=== PATIENT | female | born 1965 | race Caucasian/White ===

== ENCOUNTER 2016-06-29 16:21 | Emergency (ER) | payer OTHER ==
[2016-06-29 19:55] LABS: RED BLOOD COUNT 4.47 M/UL (4.00-5.10); WHITE BLOOD COUNT 9.3 K/UL (4.5-11.0)
[2016-06-29 20:12] LABS: BUN/CREATININE RATIO 14 (0-10)
[2016-11-14] MEDS ORDERED: ELIQUIS5 MG PO (04:15)
[2016-11-14] MEDS ORDERED: TOPROL XL50 MG PO (04:15)
[2016-11-14] MEDS ORDERED: KLONOPIN TAB 00.5 MG PO ×2 (04:16→04:17)
[2016-11-14] MEDS ORDERED: ZANTAC150 MG PO (04:16)
== END 2016-06-29 23:10 | disposition home or self-care (01) ==
LOC: ER1 16:21
PROVIDERS: Physician Assistant
DX: K21.9 Gastro-esophageal reflux disease without esophagitis (principal); I12.9 Hypertensive chronic kidney disease with stage 1 through stage 4 chronic kidney disease, or unspecified chronic kidney disease; N18.9 Chronic kidney disease, unspecified; I48.91 Unspecified atrial fibrillation; E03.9 Hypothyroidism, unspecified; F17.210 Nicotine dependence, cigarettes, uncomplicated
CPT/HCPCS: 36415; 71010; 80053; 81001; 82550; 82553; 83690; 83874; 84443; 84484; 85025; 87081; 87086; 87880; 93005; 96361; 96374; 99284; C9113

== ENCOUNTER → 2016-06-30 | Outpatient (CLI) | payer OTHER ==
[~2016-06-30] MED LIST: ELIQUIS5 MG PO; KLONOPIN TAB 00.5 MG PO; SOTALOL80 MG PO; TOPROL XL50 MG PO; ZANTAC150 MG PO
== END ==
LOC: RAD 15:55
DX: M25.531 Pain in right wrist (principal); M79.89 Other specified soft tissue disorders
CPT/HCPCS: 73110

== ENCOUNTER → 2016-08-11 | Outpatient (CLI) | payer OTHER ==
[2016-08-11 10:10] LABS: BUN/CREATININE RATIO 11 (0-10)
== END ==
LOC: LAB 08:59
PROVIDERS: Internal Medicine
DX: E78.5 Hyperlipidemia, unspecified (principal); I10 Essential (primary) hypertension; R73.01 Impaired fasting glucose; Z79.899 Other long term (current) drug therapy
CPT/HCPCS: 36415; 80053; 80061; 83036

== ENCOUNTER 2016-09-05 17:21 | Emergency (ER) | payer OTHER ==
[2016-09-05 17:55] LABS: HEMOGLOBIN 14.9 gm/dl (12.3-15.3); RED BLOOD COUNT 4.75 M/UL (4.00-5.10); WHITE BLOOD COUNT 9.6 K/UL (4.5-11.0)
[2016-09-05 18:26] LABS: BUN/CREATININE RATIO 12 (0-10)
[2016-11-14] MEDS ORDERED: ELIQUIS5 MG PO (04:15)
[2016-11-14] MEDS ORDERED: TOPROL XL50 MG PO (04:15)
[2016-11-14] MEDS ORDERED: ZANTAC150 MG PO (04:16)
[2016-11-14] MEDS ORDERED: KLONOPIN TAB 00.5 MG PO ×2 (04:16→04:17)
== END 2016-09-05 21:13 | disposition home or self-care (01) ==
LOC: ER1 17:21
PROVIDERS: Emergency Medicine
DX: K21.9 Gastro-esophageal reflux disease without esophagitis (principal); I10 Essential (primary) hypertension; I48.0 Paroxysmal atrial fibrillation; F17.200 Nicotine dependence, unspecified, uncomplicated; Z88.6 Allergy status to analgesic agent; Z91.041 Radiographic dye allergy status; Z79.899 Other long term (current) drug therapy
CPT/HCPCS: 36415; 71010; 80053; 82550; 82553; 83874; 84484; 85025; 93005; 99284; C9113

== ENCOUNTER 2016-12-07 19:44 | Inpatient (IN) | payer OTHER ==
[~2016-12-07] VITALS: Ht 172.7 cm; Wt 95.3 kg
[~2016-12-07 19:44] MED LIST changes: -SOTALOL80 MG PO
[2016-12-07 20:14] LABS: HEMOGLOBIN 14.8 gm/dl (12.3-15.3); RED BLOOD COUNT 4.67 M/UL (4.00-5.10); WHITE BLOOD COUNT 10.6 K/UL (4.5-11.0)
[2016-12-07 20:34] LABS: BUN/CREATININE RATIO 16 (0-10)
[2016-12-08 04:43] LABS: HEMOGLOBIN 13.4 gm/dl (12.3-15.3); RED BLOOD COUNT 4.26 M/UL (4.00-5.10); WHITE BLOOD COUNT 8.3 K/UL (4.5-11.0)
[2016-12-08 05:03] LABS: BUN/CREATININE RATIO 16 (0-10)
[2016-12-09] MEDS ORDERED: SOTALOL80 MG PO (10:45)
== END 2016-12-09 09:30 | disposition home or self-care (01) | DRG 310 ==
LOC: ER1 19:44 → ZEROF 12-08 00:12 → CCU 12-08 00:12
PROVIDERS: Family Medicine; ADMIT Internal Medicine
DX: I48.0 Paroxysmal atrial fibrillation (principal); I10 Essential (primary) hypertension; F17.210 Nicotine dependence, cigarettes, uncomplicated; E05.90 Thyrotoxicosis, unspecified without thyrotoxic crisis or storm; Z91.041 Radiographic dye allergy status; Z88.8 Allergy status to other drugs, medicaments and biological substances; Z88.6 Allergy status to analgesic agent; Z79.899 Other long term (current) drug therapy; Z79.02 Long term (current) use of antithrombotics/antiplatelets; Z90.5 Acquired absence of kidney
CPT/HCPCS: 71010; 80053; 82550; 82553; 83735; 83874; 83880; 84100; 84439; 84443; 84484; 85025; 93005; J7030

== ENCOUNTER → 2020-05-25 | Outpatient (CLI) | payer OTHER ==
[~2020-05-25] MED LIST changes: +CETIRIZINE HCL10 MG PO; +HYDROCODON-ACE1 EAC6 PO; +OMEPRAZOLE20 M1 PO; +SOTALOL80 MG PO; +VENTOLIN HFA 66.7 GM INH; +VITAMIN B12 PO; +VITAMIN C500 M4 PO; +VITAMIN D PO; +ZINC50 M3 PO
[2020-05-25 09:25] LABS: HEMOGLOBIN 14.7 gm/dl (12.3-15.3); RED BLOOD COUNT 4.58 M/UL (4.00-5.10); WHITE BLOOD COUNT 7.5 K/UL (4.5-11.0)
[2020-05-25 09:57] LABS: BUN/CREATININE RATIO 15 (0-10)
== END ==
LOC: OPSV2 05-23 08:00
PROVIDERS: Anesthesiology; Obstetrics & Gynecology
DX: Z01.818 Encounter for other preprocedural examination (principal); A63.0 Anogenital (venereal) warts; R94.31 Abnormal electrocardiogram [ECG] [EKG]
CPT/HCPCS: 36415; 80048; 81001; 85025; 93005

== ENCOUNTER → 2020-05-31 | Day surgery (SDC) | payer OTHER | END | disposition home or self-care (01) | LOC: OR 07:29 | PROVIDERS: Obstetrics & Gynecology | PROC: 0UPDXHZ Removal of Contraceptive Device from Uterus and Cervix, External Approach (ICD-10-PCS; 2020-05-31) | PROC: 0U5MXZZ Destruction of Vulva, External Approach (ICD-10-PCS; principal; 2020-05-31 08:30) | DX: A63.0 Anogenital (venereal) warts (principal); N95.9 Unspecified menopausal and perimenopausal disorder; I25.10 Atherosclerotic heart disease of native coronary artery without angina pectoris; I10 Essential (primary) hypertension; F41.0 Panic disorder [episodic paroxysmal anxiety]; E78.2 Mixed hyperlipidemia; G47.00 Insomnia, unspecified; K21.9 Gastro-esophageal reflux disease without esophagitis; I48.91 Unspecified atrial fibrillation; E04.2 Nontoxic multinodular goiter; F41.9 Anxiety disorder, unspecified; E11.9 Type 2 diabetes mellitus without complications; M19.90 Unspecified osteoarthritis, unspecified site; K44.9 Diaphragmatic hernia without obstruction or gangrene; F17.210 Nicotine dependence, cigarettes, uncomplicated; F17.290 Nicotine dependence, other tobacco product, uncomplicated; Z79.84 Long term (current) use of oral hypoglycemic drugs; Z79.01 Long term (current) use of anticoagulants; Z20.822 Contact with and (suspected) exposure to COVID-19; Z97.5 Presence of (intrauterine) contraceptive device; Z88.8 Allergy status to other drugs, medicaments and biological substances; Z90.5 Acquired absence of kidney | CPT/HCPCS: J2001; J2250; J2405; J2704; J3010; J7120 ==

== ENCOUNTER 2020-07-25 08:23 | Emergency (ER) | payer OTHER ==
[2020-07-25 09:41] LABS: HEMOGLOBIN 15.4 gm/dl (12.3-15.3); RED BLOOD COUNT 4.73 M/UL (4.00-5.10); WHITE BLOOD COUNT 7.9 K/UL (4.5-11.0)
[2020-07-25 10:00] LABS: BUN/CREATININE RATIO 11 (0-10)
== END 2020-07-25 11:10 | disposition home or self-care (01) ==
LOC: ER1 08:23
PROVIDERS: Emergency Medicine
DX: R10.12 Left upper quadrant pain (principal); R00.2 Palpitations; I48.91 Unspecified atrial fibrillation; Z79.01 Long term (current) use of anticoagulants; Z79.899 Other long term (current) drug therapy
CPT/HCPCS: 71045; 80053; 82550; 82553; 83690; 83874; 84484; 85025; 93005; 99285

== ENCOUNTER 2020-12-22 19:41 | Emergency (ER) | payer OTHER ==
[2020-12-22] MEDS ORDERED: PERCOCET 5/325 T1 EA PO (23:15)
== END 2020-12-22 23:40 | disposition home or self-care (01) ==
LOC: ER1 19:41
DX: S93.402A Sprain of unspecified ligament of left ankle, initial encounter (principal); S93.401A Sprain of unspecified ligament of right ankle, initial encounter; I48.91 Unspecified atrial fibrillation; Z79.01 Long term (current) use of anticoagulants; F17.200 Nicotine dependence, unspecified, uncomplicated; W19.XXXA Unspecified fall, initial encounter
CPT/HCPCS: 73590; 73610; 99283

== ENCOUNTER → 2020-12-31 | Outpatient (CLI) | payer OTHER ==
[~2020-12-31] MED LIST changes: +PERCOCET 5/325 T1 EA PO
== END ==
LOC: KOH-I 14:41
DX: S93.402A Sprain of unspecified ligament of left ankle, initial encounter (principal); M79.672 Pain in left foot
CPT/HCPCS: 73610; 73630

== ENCOUNTER → 2021-01-31 | Outpatient (CLI) | payer OTHER | LOC: KOH-I 09:58 | DX: M25.572 Pain in left ankle and joints of left foot (principal); M19.072 Primary osteoarthritis, left ankle and foot | CPT/HCPCS: 73610 ==

== ENCOUNTER → 2021-02-04 | Outpatient (CLI) | payer OTHER | LOC: EXRD 07:40 | DX: S89.92XA Unspecified injury of left lower leg, initial encounter (principal); I82.462 Acute embolism and thrombosis of left calf muscular vein | CPT/HCPCS: 93971 ==

== ENCOUNTER → 2021-02-12 | Outpatient (CLI) | payer OTHER | LOC: KOH-I 08:00 | DX: S82.832D Other fracture of upper and lower end of left fibula, subsequent encounter for closed fracture with routine healing (principal) | CPT/HCPCS: 73721 ==

== ENCOUNTER → 2021-03-06 | Outpatient (CLI) | payer OTHER | LOC: EXRD 08:40 | DX: R10.9 Unspecified abdominal pain (principal); K76.0 Fatty (change of) liver, not elsewhere classified | CPT/HCPCS: 76700 ==

== ENCOUNTER → 2021-04-04 | Outpatient (CLI) | payer OTHER | LOC: KOH-I 08:46 | DX: S82.892A Other fracture of left lower leg, initial encounter for closed fracture (principal) | CPT/HCPCS: 73630 ==

== ENCOUNTER 2021-10-18 10:04 | Emergency (ER) | payer OTHER ==
[2021-10-18] MEDS ORDERED: FLONASE 0.05% N16 GM (13:35)
[2021-10-18] MEDS ORDERED: DELSYM30 MG/5 ML PO (13:35)
== END 2021-10-18 13:50 | disposition home or self-care (01) ==
LOC: ER1 10:04
DX: U07.1 COVID-19 (principal); I48.91 Unspecified atrial fibrillation; I10 Essential (primary) hypertension; F17.210 Nicotine dependence, cigarettes, uncomplicated; Z88.8 Allergy status to other drugs, medicaments and biological substances; Z79.01 Long term (current) use of anticoagulants
CPT/HCPCS: 0240U; 87081; 87880; 99283